=== PATIENT | female | born 1945 | race Caucasian/White ===

== ENCOUNTER 2016-03-09 09:39 | Outpatient (CLI) | payer OTHER ==
--- NOTE | 2016-03-09 11:11 | DIAGNOSTIC IMAGING REPORT ---
PROCEDURE: MG BILATERAL SCREENING W/CAD INDICATION: Screening. Personal history of melanoma. Family history breast carcinoma (grandmother). Prior benign left breast biopsy. TECHNIQUE: Bilateral CC and MLO digital views. COMPARISON: Compared to prior outside studies from [facility] on 04/25/2015, 12/19/2013, and 10/26/2012. FINDINGS: Computer-aided detection applied. Moderately dense. No change. IMPRESSION: 1. Negative mammogram RESULT CODE: 1- Negative. A. A negative report should not delay biopsy if a dominant or clinically suspicious mass is present. 10-15% of cancers are not identified by x-ray. B. A negative report may reinforce clinical impression. C. Adenosis and dense breasts may obscure an underlying neoplasm. D. False positive reports average 6-10%. E.. A yearly screening mammogram is recommended. A reminder letter will be scheduled.
== END 2016-03-09 23:00 ==
LOC: MAM SRH 09:39
DX: Z12.31 Encounter for screening mammogram for malignant neoplasm of breast (principal)